=== PATIENT | female | born 1940 | race Caucasian/White ===

== ENCOUNTER → 2016-08-09 | Day surgery (SDC) | payer OTHER ==
[~2016-08-09] MED LIST: ASPI-482 PO; GLIM4TAB2 PO; HYDR50TA6 PO; INSU100V13 SQ; IV RINGERS,LACTATED 1000ML 1,000 ML IV SCH; LIDOCAINE 2% PF Vial for OR 5 ML VIAL. ONE; LISI40TA PO; METF500T4 PO; METO25TA4 PO; OMEP20TA PO; PROPOFOL 20 ML IV ONE; SIMV10TA3 PO; TRAM50TA PO; VERA120T5 PO
[2016-08-09 09:15] VITALS: BP 133/77
== END | disposition home or self-care (01) ==
LOC: ENDOS 07:12
PROVIDERS: ATTEND Internal Medicine Gastroenterology
DX: D50.0 Iron deficiency anemia secondary to blood loss (chronic) (principal); K64.0 First degree hemorrhoids; K57.30 Diverticulosis of large intestine without perforation or abscess without bleeding; K29.40 Chronic atrophic gastritis without bleeding; M19.90 Unspecified osteoarthritis, unspecified site; E78.00 Pure hypercholesterolemia, unspecified; E03.9 Hypothyroidism, unspecified; E11.9 Type 2 diabetes mellitus without complications; I10 Essential (primary) hypertension; Z90.49 Acquired absence of other specified parts of digestive tract; Z90.710 Acquired absence of both cervix and uterus
CPT/HCPCS: 43235; 45378; J2704

== ENCOUNTER → 2017-10-02 | Outpatient (CLI) | payer OTHER | END | disposition home or self-care (01) | LOC: KCIC MRI 11:21 | DX: M51.35 Other intervertebral disc degeneration, thoracolumbar region (principal); M43.16 Spondylolisthesis, lumbar region; M48.061 Spinal stenosis, lumbar region without neurogenic claudication; M25.78 Osteophyte, vertebrae; I10 Essential (primary) hypertension; E11.9 Type 2 diabetes mellitus without complications; E78.00 Pure hypercholesterolemia, unspecified; E03.9 Hypothyroidism, unspecified | CPT/HCPCS: 72148 ==

== ENCOUNTER → 2019-11-17 | Outpatient (CLI) | payer MEDICARE ==
[2016-08-09 09:15] VITALS: BP 133/77
[~2019-11-17] MED LIST changes: -GLIM4TAB2 PO; +GLIM4TAB8 PO; -IV RINGERS,LACTATED 1000ML 1,000 ML IV SCH; -LIDOCAINE 2% PF Vial for OR 5 ML VIAL. ONE; +LISI-130 PO; -LISI40TA PO; +METF500T16 PO; -METF500T4 PO; -OMEP20TA PO; +OMEP20TA8 PO; -PROPOFOL 20 ML IV ONE; +SIMV10TA15 PO; -SIMV10TA3 PO; +VERA120T12 PO; -VERA120T5 PO
--- NOTE | 2019-11-17 14:21 | KCIC ---
MR of the left knee HISTORY: Left knee pain. Total knee replacement in 2006. Recent fall last 3 weeks. TECHNIQUE: Routine multiplanar sequences are obtained. Technique was modified to minimize metal artifact. FINDINGS: Expected image degradation from artifact in the region of the metal hardware. The visualized bones appear intact without aggressive bone destruction, acute marrow edema or acute fracture. Very small Garcia's cyst is seen. No evidence of a large suprapatellar effusion. The patellar tendon and distal quadriceps tendon are intact. IMPRESSION: 1. Small Garcia's cyst. 2. Extensor mechanism appears intact. 3. No definite acute abnormality. Electronically signed by: Eladio Dueñas MD (11/17/2019 2:18 PM) [id number]
--- NOTE | 2019-11-17 14:34 | KCIC ---
EXAMINATION: Magnetic resonance imaging (MRI) of the lumbar spine without contrast 11/17/2019 2:00 PM HISTORY: Chronic lower back pain causing falls. Pain in both legs and knees TECHNIQUE: Multiplanar multi-weighted MRI of the lumbar spine was performed without intravenous contrast using the standard lumbar spine protocol. Contrast information: None administered. COMPARISON: MRI lumbar spine 10/02/2017 FINDINGS: There is minimal anterolisthesis of L4 on L5, stable. There is moderate disc height loss at T12-L1 with endplate edema and irregularity, progressed since 10/02/2017. There is mild disc height loss at L2-L3. There is advanced disc height loss L5-S1, stable. Mild anterior marginal osteophytosis is present. Disc desiccation is noted at all levels of the lumbar spine. Conus medullaris terminates at T12-L1. Distal spinal cord signal intensity is normal in all sequences. Abdominal aorta is normal in caliber. No suspicious retroperitoneal abnormality is identified. Visualized portions of the sacrum appear intact. T11-T12: There is a new right central disc extrusion extending to the infra pedicle level of T12. There is right lateral recess stenosis. Mild spinal canal stenosis without deformity of the conus medullaris. Moderate right and mild left neuroforaminal stenosis. T12-L1: There is a moderate disc bulge with right foraminal disc protrusion. There is mild facet arthropathy. Moderate to severe right and moderate left neuroforaminal stenosis. Mild spinal canal stenosis. Findings appear relatively stable. L1-L2: There is a mild disc bulge. No significant facet arthropathy. Mild right and moderate left neuroforaminal stenosis. No spinal canal stenosis. Findings are stable. L2-L3: There is moderate circumferential disc bulge. Moderate facet arthropathy with ligamentum flavum infolding. There is moderate bilateral neuroforaminal stenosis, left greater than right. There is narrowing of the left lateral recess, progressed. Moderate spinal canal stenosis, stable. L3-L4: There is a moderate disc bulge. Mild to moderate facet arthropathy with ligamentum flavum infolding. Stable mild right and moderate left neuroforaminal stenosis and mild spinal canal stenosis. L4-L5: There is mild disc bulge. Moderate to severe facet arthropathy. No significant neuroforaminal or spinal canal stenosis. No definite pars defect is visualized by MRI. L5-S1: Moderate posterior disc osteophyte complex. Moderate facet arthropathy. Moderate bilateral neuroforaminal stenosis. No spinal canal stenosis. 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 Findings are progressed particularly at the T11-T12 vertebral level with a right central disc extrusion, new from the prior examination. Electronically signed by: Lea Moon MD (11/17/2019 2:32 PM) [facility]
== END | disposition home or self-care (01) ==
LOC: KCIC MRI 12:51
PROVIDERS: ATTEND Family Medicine
DX: M47.895 Other spondylosis, thoracolumbar region (principal); M47.814 Spondylosis without myelopathy or radiculopathy, thoracic region; M25.562 Pain in left knee; M25.78 Osteophyte, vertebrae; M48.04 Spinal stenosis, thoracic region; M51.24 Other intervertebral disc displacement, thoracic region; M71.22 Synovial cyst of popliteal space [Baker], left knee; Z96.652 Presence of left artificial knee joint
CPT/HCPCS: 72148; 73721